=== PATIENT | female | born 1950 | race Caucasian/White ===

== ENCOUNTER 2025-04-21 10:02 | Emergency (ER) | payer OTHER, SELFPAY ==
[2025-04-21 10:05] VITALS: BP 145/52
[2025-04-21 11:02] LABS: Hematocrit 33.7 % (37.0-47.0); Hemoglobin 10.1 g/dL (12.0-16.0); Mean Corp Hgb Conc. 30.0 g/dL (33.0-37.0); Mean Corpuscular Volume 98.0 fL (81.0-99.0); Nucleated Red Blood Cells % 0 %; Platelet Count 418 10^3/uL (130-400); Red Cell Dist. Width 24.7 % (11.5-14.5)
[2025-04-21 11:11] LABS: ALT (SGPT) 20 U/L (0-35); AST (SGOT) 39 U/L (14-36); Albumin 4.4 g/dl (3.5-5.0); Alkaline Phosphatase 85 U/L (38-126); Blood Urea Nitrogen 5 mg/dl (7-17); Calcium 9.4 mg/dl (8.4-10.2); Carbon Dioxide 29 mmol/L (22-30); Chloride 104 mmol/L (98-107); Glucose 93 mg/dl (70-99); Lipase 70 U/L (23-300); Potassium 3.9 mmol/L (3.5-5.1); Sodium 136 mmol/L (135-145); Total Protein 7.1 g/dl (6.3-8.2); eGFR > 60.00
--- NOTE | 2025-04-21 12:46 | ED.GENMED ---
History of Present Illness
<Kelly Hanna PA-C - Last Filed: 04/21/25 20:35>
General
Chief Complaint: Abdominal Pain
Source: patient
Exam Limitations: none
Time Seen by Provider: 04/21/25 12:46
History of Present Illness
History of Present Illness:
75yoF with a history of anemia, GERD, and heart murmur presenting via EMS for numerous complaints. Patient has been having ongoing abdominal pain for the last several weeks. Her abdominal pain is generalized and she reports associated bloating.
Pain radiates into the right leg and into the right arm. She has also been having vomiting since before . She reports bilateral lower extremity edema that have been present for several years but seems to be worsening with dyspnea. She
also reports fevers and chills but Tmax is 98. She has been admitted twice this past month at [facility] for all of these issues. She reports that she has had multiple CTs and was told that she had internal bleeding but that it would resolve on
its own. Hemoglobin was reportedly 8 at time of discharge. She had 1 episode of rectal bleeding 5 days ago after straining to have a bowel movement but has not had any rectal bleeding since. She called her PCPs office today due to her ongoing
pain and she was reportedly told to go to the ED for evaluation. She was prescribed Dilaudid at time of discharge but she ran out of this. She admits that all of her symptoms are unchanged since being discharged from the hospital and she has no
new symptoms today.
Phy Exam
<Kelly Hanna PA-C - Last Filed: 04/21/25 20:35>
General Physical Exam
General Presentation: well appearing and no apparent distress
General Skin: warm and dry
General Habitus: normal
General Mental: alert
ENT Exam
ENT Exam: normocephalic
Cardiovascular Exam
Cardiovascular Exam: regular rate/rhythm, systolic murmur and other (2-3+ pitting edema in bilateral lower extremities)
Pulmonary Exam
Pulmonary Exam: lungs clear, no respiratory distress, no rales, no crackles, no rhonchi, no stridor and no wheezing
Gastrointestinal Exam
Gastrointestinal Exam: soft, non distended and other (+Generalized abdominal tenderness that seems worse in RLQ. No rebound or guarding.)
Neurological Exam
Neurological Exam: alert
[place] Coma Scale
Eye Opening: Spontaneous
Verbal Response: Oriented
Motor Response: Obeys Commands
GCS Total Score: 15
Skin Exam
Skin Exam: normal color and warm/dry
Psychiatric Exam
Psychiatric Exam: normal mood/affect
Course
<Kelly Hanna PA-C - Last Filed: 04/21/25 20:35>
Orders/Labs/Results
Orders:
Orders
04/21/25 10:12
EKG [Electrocardiogram (*1)] Urgent
Reason for Study: Shortness of Breath
EKG- Treatment ONCE
04/21/25 10:41
Type And Crossmatch [Type+Screen] Urgent
Complete Blood Count/With Diff Urgent
Comprehensive Metabolic Panel Urgent
Lipase Urgent
Pro-BNP [NT-proBNP] Urgent
04/21/25 13:01
Add On- LAB Urgent
Tests Added?: troponin
CT Chest/abd/pelvis Angio W/wo Urgent
Comment:
Reason For Exam: generalized abd pain radiating to neck/leg, SOB
EKG- Treatment ONCE
04/21/25 14:39
Troponin I Urgent
Comment: ADD ON
04/21/25 14:58
HYDROmorphone [Dilaudid] 0.5 mg IV NOW STA
Abnormal Lab Results
04/21/25
10:41
RBC 3.44 L 10^6/uL
(4.20-5.40)
Hgb 10.1 L g/dL
(12.0-16.0)
Hct 33.7 L %
(37.0-47.0)
MCHC 30.0 L g/dL
(33.0-37.0)
RDW 24.7 H %
(11.5-14.5)
Plt Count 418 H 10^3/uL
(130-400)
Absolute Lymphs (auto) 1.1 L 10^3/uL
(1.2-3.4)
Lymphocytes % 19.6 L %
(20.5-51.1)
BUN 5 L mg/dl
(7-17)
AST 39 H U/L
(14-36)
04/21/25 10:41
04/21/25 10:41
Vital Signs
Initial and Last Documented VS:
Initial Vital Signs
Temp Pulse Resp BP Pulse Ox
98.3 F 80 16 145/52 95
04/21/25 10:05 04/21/25 10:05 04/21/25 10:05 04/21/25 10:05 04/21/25 10:05
Last Documented Vital Signs
Temp Pulse Resp BP Pulse Ox
98.3 F 81 18 112/72 99
04/21/25 10:05 04/21/25 17:01 04/21/25 17:01 04/21/25 17:01 04/21/25 17:01
Lynseylt;Connor Medley, DO - Last Filed: 04/21/25 16:31>
Orders/Labs/Results
Orders:
Orders
04/21/25 10:12
EKG [Electrocardiogram (*1)] Urgent
Reason for Study: Shortness of Breath
EKG- Treatment ONCE
04/21/25 10:41
Type And Crossmatch [Type+Screen] Urgent
Complete Blood Count/With Diff Urgent
Comprehensive Metabolic Panel Urgent
Lipase Urgent
Pro-BNP [NT-proBNP] Urgent
04/21/25 13:01
Add On- LAB Urgent
Tests Added?: troponin
CT Chest/abd/pelvis Angio W/wo Urgent
Comment:
Reason For Exam: generalized abd pain radiating to neck/leg, SOB
EKG- Treatment ONCE
04/21/25 14:39
Troponin I Urgent
Comment: ADD ON
04/21/25 14:58
HYDROmorphone [Dilaudid] 0.5 mg IV NOW STA
Abnormal Lab Results
04/21/25
10:41
RBC 3.44 L 10^6/uL
(4.20-5.40)
Hgb 10.1 L g/dL
(12.0-16.0)
Hct 33.7 L %
(37.0-47.0)
MCHC 30.0 L g/dL
(33.0-37.0)
RDW 24.7 H %
(11.5-14.5)
Plt Count 418 H 10^3/uL
(130-400)
Absolute Lymphs (auto) 1.1 L 10^3/uL
(1.2-3.4)
Lymphocytes % 19.6 L %
(20.5-51.1)
BUN 5 L mg/dl
(7-17)
AST 39 H U/L
(14-36)
04/21/25 10:41
04/21/25 10:41
Vital Signs
Initial and Last Documented VS:
Initial Vital Signs
Temp Pulse Resp BP Pulse Ox
98.3 F 80 16 145/52 95
04/21/25 10:05 04/21/25 10:05 04/21/25 10:05 04/21/25 10:05 04/21/25 10:05
Last Documented Vital Signs
Temp Pulse Resp BP Pulse Ox
98.3 F 81 18 112/72 99
04/21/25 10:05 04/21/25 17:01 04/21/25 17:01 04/21/25 17:01 04/21/25 17:01
<Kelly Hanna PA-C - Last Filed: 04/21/25 20:35>
MDM/Problems Addressed
Differential Diagnosis Includes:
75yoF here with multiple complaints but main complaint is abdominal pain radiating to R leg and arm. Ongoing x several weeks. Multiple recent admissions at [facility] for the same. VSS. Patient non-toxic appearing. No signs of peritonitis on
abdominal exam. Differential diagnosis includes: musculoskeletal pain, appendicitis, cholecystitis, SBO, ACS
Initial ED plan: Workup initiated in triage. Hemoglobin is 10.1 which is better than baseline. Remainder of labs unremarkable. EKG shows NSR without ischemic changes. Will check troponin and CTA CAP. IV Dilaudid for pain.
<Kelly Hanna PA-C - Last Filed: 04/21/25 20:35>
*Pulse Oximetry
SaO2: 95
Oxygen Mode of Delivery: Room air
Patient hypoxic: no
*EKG
Interpreted by ED Provider?: Yes
EKG Intrepretation Date: 04/21/25
Heart Rate: 80
Rate: normal
Rhythm: sinus
Steger: normal axis
Interval: normal interval
QRS Pattern: normal QRS
Ischemia: no ischemia
*Critical Care Note
Total Time (30-74mins, 75-104mins- exclusive of procedures): Not Applicable
<Kelly Hanna PA-C - Last Filed: 04/21/25 20:35>
Update Note
Update Note:
Troponin normal. CT shows right rectus sheath hematoma, measuring 18 x 15 x 6 cm. I was able to obtain records from [facility] and this hematoma was noted during her last 2 hospital stays. Hematoma measured 2.4 x 7.6cm at her last CT on 04/12 so
today's hematoma is larger although no active extravasation noted and hemoglobin is actually improving. Offered admission which patient declines and pain well controlled on reassessment. Refill for Dilaudid provided. She has an appt with her PCP
scheduled in 4 days.
ED Attending Note
<Kelly Hanna PA-C - Last Filed: 04/21/25 20:35>
-
Portions of this chart may have been created with voice recognition software.� Occasional wrong word or��sound alike� substitutions may have occurred due to the inherent limitations of voice recognition software.
<Connor Medley DO - Last Filed: 04/21/25 16:31>
ED Attending Note
Patient seen and examined by attending physician: Yes
ED Attending Note:
I have reviewed and agree with history treatment plan by Kelly Hanna PA-C. My exam revealed 75-year-old female in no acute distress, mild pain at rectus abdominis area of hematoma. Patient stable for discharge pain controlled. Will give
short prescription of Dilaudid for her pain control. She will follow-up with pain management and primary care.
Discharge Plan
Departure
Patient Disposition: Home (Routine Discharge)
Date of Disposition: 04/21/25
Time of Disposition: 16:59
Patient with high blood pressure during this ER visit?: No
Discharge Problem:
Rectus sheath hematoma, Abdominal pain
Instructions: Hematoma
Prescriptions:
New
hydromorphone 2 mg tablet
2 mg PO Q4H PRN (Reason: Pain) Qty: 20 0RF
No Action
hydromorphone 2 mg Tablet
2 mg PO Q4HPRN PRN (Reason: severe pain)
pantoprazole [Protonix] 40 mg Tablet,Delayed Release (Dr/Ec)
40 mg PO DAILY
cyanocobalamin (vitamin B-12) 1,000 mcg/mL Solution
1,000 mcg IM QMONTH
metoprolol succinate [Toprol XL] 25 mg Tablet Extended Release 24 Hr
25 mg PO DAILY
Referrals:
Naomi Rader CRNP [Family Provider, Family Practice]
Activity Restrictions/Additional Instructions:
A prescription for Dilaudid was sent to your pharmacy. You may also take Tylenol as needed for pain.
Please follow-up with your family doctor on Friday as previously scheduled. Return to the ER with any new or worsening symptoms.
Interventions
Interventions:
*General Assessment Last Done: 04/21/25 13:08
*Neglect/Abuse Screening Last Done: 04/21/25 17:50
*ED COVID-19 Vaccine History Last Done: 04/21/25 13:08
*ED Influenza Vaccine History Last Done: 04/21/25 13:08
[facility] Fall Risk Assessment Tool Last Done: 04/21/25 13:07
*Risk Screen - Suicide (C-SSRS) Last Done: 04/21/25 10:05
*Nursing Disposition Last Done: 04/21/25 19:05
NT-Dorjcx-Owopgutifl Assessment Last Done: 04/21/25 13:16
Discharge Date and Time
Discharge Date/Time: 04/21/25 20:00
Print Language: NIUEAN
[2025-04-21 13:07] VITALS: BMI 35.5
[2025-04-21 13:18] VITALS: BP 110/79
[2025-04-21 15:21] LABS: Troponin I 0.030 ng/ml
[2025-04-21] MEDS: DILAUDID 0.5 MG IV (15:45)
[2025-04-21 17:01] VITALS: BP 112/72
== END 2025-04-21 20:00 | disposition home or self-care (01) ==
LOC: EMR 10:02
PROVIDERS: EMERGENCY PHYSICIAN Emergency Medicine; FAMILY PHYSICIAN Nurse Practitioner Family
DX: S30.11XA Contusion of abdominal wall, initial encounter (principal); X58.XXXA Exposure to other specified factors, initial encounter; R10.84 Generalized abdominal pain; R60.0 Localized edema
CPT/HCPCS: 99284; 96374; 71275; 74174; 80053; 83690; 83880; 84484; 85025; 86850; 86900; 86901; 93005; Q9967